=== PATIENT | female | born 1950 | race Caucasian/White ===

== ENCOUNTER 2022-01-05 12:06 | Inpatient (IN) ==
[2022-01-05 16:35] VITALS: BMI 20.2
[2022-01-05 17:31] LABS: BASOPHILS # (AUTO) 0.1 X10^3/uL (0.0-0.1); EOSINOPHILS # (AUTO) 0.1 x10^3/uL (0.0-0.2); HEMOGLOBIN 11.9 g/dL (12.0-16.0)
[2022-01-05 17:33] LABS: BASOPHILS % (AUTO) 0.3 % (0.2-1.0); MEAN PLATELET VOLUME 9.1 fL (7.4-11.0); MONOCYTES # (AUTO) 0.9 x10^3/uL (0.3-0.8)
[2022-01-05 17:38] LABS: EOSINOPHILS % (AUTO) 0.5 % (0.9-2.9); HEMATOCRIT 35.4 % (36.0-47.0); LYMPHOCYTES # (AUTO) 1.2 X10^3/uL (1.3-2.9); MEAN CORPUSCULAR HEMOGLOBIN 27.2 pg (27.0-34.0); MEAN CORPUSCULAR HGB CONC 33.7 g/dL (33.0-35.0); MEAN CORPUSCULAR VOLUME 80.9 fL (80.0-100.0); MONOCYTES % (AUTO) 5.2 % (0.0-13.0); NEUTROPHILS # (AUTO) 14.9 x10^3/uL (2.2-4.8); RED BLOOD COUNT 4.37 X10^6/uL (3.5-5.4); RED CELL DISTRIBUTION WIDTH 14.9 % (11.6-16.5); WHITE BLOOD COUNT 17.1 X10^3/uL (3.6-10.0)
[2022-01-05 17:44] LABS: ALANINE AMINOTRANSFERASE 29 Units/L (12-78); ALBUMIN 3.3 g/dL (3.4-5.0); ALKALINE PHOSPHATASE 162 Units/L (46-116); ASPARTATE AMINO TRANSFERASE 22 Units/L (15-37); BLOOD UREA NITROGEN 37 mg/dL (7-18); CALCIUM 9.9 mg/dL (8.5-10.1); CARBON DIOXIDE 22.8 mmol/L (21-32); CHLORIDE 101 mmol/L (98-107); COR CA(FOR HYPOALB) 10.5 mg/dL (8.5-10.1); CREATININE 1.14 mg/dL (0.55-1.02); SODIUM 135 mmol/L (136-145); TOTAL PROTEIN 8.4 g/dL (6.4-8.2); eGFR NON BLACK RACES 50 (>60)
[2022-01-05 17:52] LABS: PLATELET MORPHOLOGY COMMENT ABNORMAL (NORMAL)
[2022-01-05] MEDS: LR 1,000 ML IV 1,000 ML IV SCH (18:00)
[2022-01-05] MEDS: ZOSYN VIAL 3.375 GRAMS 3.375 G in NS 100 ML IV 100 ML IV SCH (18:00)
[2022-01-05] MEDS: SNACK - Diabetic Appropriate PO SCH (20:29)
[2022-01-05] MEDS: ALTACE CAP 10 MG PO SCH (20:29)
[2022-01-05] MEDS: LIPITOR TAB 20 MG PO SCH (20:30)
[2022-01-05] MEDS ORDERED: ZOSYN VIAL 3.375 GRAMS 3.375 G in NS 100 ML IV 100 ML IV SCH (22:00)
[2022-01-06] MEDS: ZOSYN VIAL 3.375 GRAMS 3.375 G in NS 100 ML IV 100 ML IV SCH ×3 (01:47→17:23)
[2022-01-06] MEDS: LR 1,000 ML IV 1,000 ML IV SCH ×3 (05:51→19:14)
[2022-01-06 06:13] LABS: BASOPHILS # (AUTO) 0.1 X10^3/uL (0.0-0.1); BASOPHILS % (AUTO) 0.8 % (0.2-1.0); EOSINOPHILS # (AUTO) 0.3 x10^3/uL (0.0-0.2); EOSINOPHILS % (AUTO) 2.5 % (0.9-2.9); HEMOGLOBIN 11.6 g/dL (12.0-16.0); LYMPHOCYTES # (AUTO) 1.5 X10^3/uL (1.3-2.9); LYMPHOCYTES % (AUTO) 14.4 % (21.0-51.0); MEAN CORPUSCULAR HEMOGLOBIN 27.7 pg (27.0-34.0); MEAN CORPUSCULAR HGB CONC 34.1 g/dL (33.0-35.0); MEAN CORPUSCULAR VOLUME 81.2 fL (80.0-100.0); MEAN PLATELET VOLUME 9.3 fL (7.4-11.0); MONOCYTES # (AUTO) 1.1 x10^3/uL (0.3-0.8); MONOCYTES % (AUTO) 10.2 % (0.0-13.0); NEUTROPHILS # (AUTO) 7.7 x10^3/uL (2.2-4.8); NEUTROPHILS % (AUTO) 72.1 % (42.0-75.0); RED BLOOD COUNT 4.19 X10^6/uL (3.5-5.4); RED CELL DISTRIBUTION WIDTH 14.6 % (11.6-16.5); WHITE BLOOD COUNT 10.7 X10^3/uL (3.6-10.0)
[2022-01-06 06:19] LABS: ALBUMIN 2.9 g/dL (3.4-5.0); CALCIUM 9.7 mg/dL (8.5-10.1); CARBON DIOXIDE 22.4 mmol/L (21-32); COR CA(FOR HYPOALB) 10.6 mg/dL (8.5-10.1); CREATININE 1.18 mg/dL (0.55-1.02)
[2022-01-06] MEDS: NovoLIN R (or HumuLIN R) SUBCUT PRN ×2 (06:42→11:09)
[2022-01-06] MEDS ORDERED: NORVASC TAB 5 MG PO ONE (09:00)
[2022-01-06] MEDS: ALTACE CAP 10 MG PO SCH ×2 (09:41→20:27)
--- NOTE | 2022-01-06 10:01 | NOTE.SOAP ---
Soap Note Note for Day of Date of Exam: 01/06/22 Subjective Data Subjective Data: Patient doing well. . Redness better left great toe and foot. Objective Data Temperature: 98.1 F Pulse Rate: 80 Respiratory Rate: 18 Blood Pressure: 164/76 O2 Sat by Pulse Oximetry: 95 Objective Data: As above Assessment Assessment: Cellulitis , possible ischemia left foot. Plan Plan: Continue IV antibiotics, check Hgb A1 C , To OR tomorrow to perform arteriogram left leg with possible arterial intervention. MRI of the left foot to see if osteomyelitis exists in the left great toe.
[2022-01-06] MEDS: LIPITOR TAB 20 MG PO SCH (20:27)
[2022-01-06] MEDS: SNACK - Diabetic Appropriate PO SCH (20:32)
[2022-01-06] MEDS ORDERED: XARELTO PO SCH (21:00)
[2022-01-07] MEDS: ZOSYN VIAL 3.375 GRAMS 3.375 G in NS 100 ML IV 100 ML IV SCH ×3 (01:52→21:11)
[2022-01-07] MEDS ORDERED: ASPIRIN EC 81 MG PO SCH (09:00)
[2022-01-07] MEDS ORDERED: ZOFRAN INJ 4 MG VIAL ONE ×2 (10:51→15:58)
[2022-01-07] MEDS ORDERED: TORADOL 30 MG VIAL ONE (10:51)
[2022-01-07] MEDS ORDERED: PROTAMINE SULFATE 50 MG VIAL ONE ×2 (10:51→14:14)
[2022-01-07] MEDS ORDERED: HEPARIN SODIUM INJ 5000 UNITS ONE (10:51)
[2022-01-07] MEDS ORDERED: PEPCID 20 MG VIAL ONE (10:51)
[2022-01-07] MEDS ORDERED: XYLOCAINE 2 % (PLAIN) ONE (10:51)
[2022-01-07] MEDS ORDERED: DIPRIVAN VIAL 20 ML ONE (10:51)
[2022-01-07] MEDS ORDERED: FENTANYL VIAL INJ 100 mcg ONE (10:52)
[2022-01-07] MEDS ORDERED: VERSED ONE (10:52)
[2022-01-07] MEDS: ALTACE CAP 10 MG PO SCH ×2 (11:05→20:22)
[2022-01-07] MEDS: LR 1,000 ML IV 1,000 ML IV SCH ×2 (11:06→21:12)
[2022-01-07] MEDS ORDERED: ANCEF VIAL 1 GRAM ONE (11:09)
[2022-01-07] MEDS ORDERED: NS 100 ML IV 100 ML ONE (11:10)
[2022-01-07] MEDS ORDERED: NS 1,000 ML IV 1,000 ML ONE (11:10)
[2022-01-07] MEDS ORDERED: MARCAINE 0.5% ONE (11:41)
[2022-01-07] MEDS ORDERED: HEPARIN SODIUM IN D5W 75,000 UNITS/1,500 ML BAG ONE (11:42)
[2022-01-07] MEDS ORDERED: KETAMINE HCL ONE (12:05)
[2022-01-07] MEDS ORDERED: OFIRMEV IV 1000 MG VIAL 1,000 MG/100 ML VIAL IV ONE (12:07)
[2022-01-07] MEDS ORDERED: EPHEDRINE SULFATE INJ ONE (12:45)
[2022-01-07] MEDS ORDERED: NS 500 ML IV 500 ML IV ONE (13:40)
[2022-01-07] MEDS: NovoLIN R (or HumuLIN R) SUBCUT PRN ×2 (17:23→20:32)
[2022-01-07] MEDS: LIPITOR TAB 20 MG PO SCH (20:22)
[2022-01-07] MEDS: SNACK - Diabetic Appropriate PO SCH (20:26)
--- NOTE | 2022-01-07 22:25 | OR.IMMED ---
IMMEDIATE POST-OP NOTE Immediate Post-Op Note Pre-Op Diagnosis: Rest pain left foot, ZAKIA of left leg is0.5 Post-Op Diagnosis: same. 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
[2022-01-07] MEDS: XARELTO PO SCH (22:57)
[2022-01-08] MEDS: ZOSYN VIAL 3.375 GRAMS 3.375 G in NS 100 ML IV 100 ML IV SCH ×2 (01:34→09:22)
[2022-01-08] MEDS: LR 1,000 ML IV 1,000 ML IV SCH (06:21)
[2022-01-08 06:28] LABS: BASOPHILS # (AUTO) 0.1 X10^3/uL (0.0-0.1); BASOPHILS % (AUTO) 0.6 % (0.2-1.0); EOSINOPHILS # (AUTO) 0.4 x10^3/uL (0.0-0.2); EOSINOPHILS % (AUTO) 4.7 % (0.9-2.9); HEMOGLOBIN 9.4 g/dL (12.0-16.0); LYMPHOCYTES # (AUTO) 1.3 X10^3/uL (1.3-2.9); LYMPHOCYTES % (AUTO) 13.8 % (21.0-51.0); MEAN CORPUSCULAR HEMOGLOBIN 27.6 pg (27.0-34.0); MEAN CORPUSCULAR HGB CONC 34.7 g/dL (33.0-35.0); MEAN CORPUSCULAR VOLUME 79.5 fL (80.0-100.0); MEAN PLATELET VOLUME 8.3 fL (7.4-11.0); MONOCYTES # (AUTO) 0.8 x10^3/uL (0.3-0.8); MONOCYTES % (AUTO) 8.4 % (0.0-13.0); NEUTROPHILS # (AUTO) 6.6 x10^3/uL (2.2-4.8); NEUTROPHILS % (AUTO) 72.5 % (42.0-75.0); RED BLOOD COUNT 3.39 X10^6/uL (3.5-5.4); RED CELL DISTRIBUTION WIDTH 14.3 % (11.6-16.5); WHITE BLOOD COUNT 9.1 X10^3/uL (3.6-10.0)
[2022-01-08 06:35] LABS: ALANINE AMINOTRANSFERASE 16 Units/L (12-78); ALBUMIN 2.4 g/dL (3.4-5.0); ALKALINE PHOSPHATASE 115 Units/L (46-116); ASPARTATE AMINO TRANSFERASE 14 Units/L (15-37); BLOOD UREA NITROGEN 16 mg/dL (7-18); CALCIUM 8.7 mg/dL (8.5-10.1); CARBON DIOXIDE 25.1 mmol/L (21-32); CHLORIDE 106 mmol/L (98-107); COR NA(FOR HYPERGLY) 143 mmol/L (136-145); CREATININE 0.89 mg/dL (0.55-1.02); SODIUM 141 mmol/L (136-145); TOTAL PROTEIN 6.5 g/dL (6.4-8.2); eGFR NON BLACK RACES > 60 (>60)
--- NOTE | 2022-01-08 08:07 | MRI ---
HISTORYlt great toe ulcerSTUDYEXT LOWER NON-JOINT W/O CONCOMPARISONNone availableTECHNIQUEMultiplanar multi sequences images through the left foot was performed without contrast.FINDINGSThere is no evidence of acute fractures. There is strong edema with loss of the fat signal involving the 1st distal phalanx, there is an ulcer in the plantar soft tissues of the great toe. No evidence of drainable collectionsThere is patchy edema in the proximal phalanx with preservation of the fat bone marrow, that it could represent early osteomyelitisThere is mild hallux valgus deformity with mild degenerative changes at the 1st metatarsal-phalangeal joint. The included Achillis tendon demonstrate no abnormal signalNo evidence of acute fractures, no abnormal signal in the sinus tarsi. The plantar fascia demonstrate no abnormal signalThere is trace amount of fluid in the 1st metatarsal-phalangeal joint. There is edema of the dorsal aspect of the forefoot. No significant neuropathic joint.IMPRESSIONFocal ulcer in the plantar soft tissues of the left great toe with acute osteomyelitis of the first distal phalanx with also patchy edema in the first proximal phalanx suggestive of early osteomyelitis. No drainable collectionsElectronically signed by: Ashley Alaniz (Jan 08, 2022 08:05:15)
[2022-01-08] MEDS ORDERED: ASPIRIN 81 MG CHEWTAB PO SCH (09:00)
[2022-01-08] MEDS: ALTACE CAP 10 MG PO SCH (09:21)
[2022-01-08] MEDS: XARELTO PO SCH (09:22)
[2022-01-08 11:32] VITALS: BP 189/83
--- NOTE | 2022-01-10 19:38 | DR.OPNOTE ---
OP NOTE Pre-Op Diagnosis: Ischemic left leg with rest pain, osteomyelitis left great toe Post-Op Diagnosis: same Procedure Date Date Of Procedure: 01/07/22 Procedure: PROCEDURE : Diagnostic aortogram , diagnostic arteriogram left lower extremity, atherectomy and drug coated balloon angioplasty left proximal superficial femoral artery NARRATIVE : The patient was taken to the operative suite and placed in the supine position. The right groin and entire left leg were prepped and draped in sterile fashion. She was given intravenous sedation which was supervised by myself. Time out for the procedure obtained. Ultrasound used to identify the right common femoral artery and the skin overlying it infiltrated with 0. 5% Marcaine .Ultrasound used to guide puncture of the right common femoral artery and a 0. 012 inch guide wire was placed. Incision made over the guide wire at the skin edge and a micro sheath placed over the guide wire into the right femoral artery . The small guidewire exchanged for a 0. 035 in Advantage glide wire and the micro sheath exchanged for a 5 Fr vascular sheath .Omni catheter placed over the guide wire and the Omni catheter used to perform diagnostic aortogram using the power injector showing normal aorta and iliac arteries. Omni catheter used to steer the wire down the left side and arteriogram carried out showing short segment complete total occlusion of the takeoff of the left superficial femoral artery. I exchanged the Omni catheter for a Nemo catheter and the 5 Fr sheath in the right groin for a destination sheath which was parked just above the left femoral artery. Multiple attempts were made to place the wire across the obstruction of the superficial femoral artery and were unsuccessful. For this reason i elected to attempt retrograde approach. The left posterior tibial artery at the ankle was localized with ultrasound and the skin overlying it infiltrated with 0.5 % Marcaine . Ultrasound used to guide puncture of the posterior tibial artery and a 0. 012 inch guidewire placed . Small incision made over the guide wire and a micro sheath placed over the guide wire into the left posterior tibial artery The 0. 035 inch Advantage glide wire was used to go all the way to the groin and I was able to get across the obstruction into the capitan grande band left iliac artery. Amplatz snare was placed through the destination sheath into the distal left iliac artery and the snare used to grasp the wire and this was brought out the right groin destination sheath . Over this wire we placed the Nemo catheter all the way down into the posterior tibial artery . We exchanged the larger wire for a 0. 014 inch wire and used the Jet Stream atherectomy device over the wire to the perform atherectomy of the proximal superficial femoral artery complete total occlusion. When this was done we ballooned open this area with a 6 mm x 100 mm of [employer] drug-coated balloon which was inflated for 3 minutes. Patient had been given 5000 units of heparin at the beginning of case . Reversal was not necessary to be carried out of the heparin. All wires and devices removed. The diagnostic sheath pulled back into the aorta and the 0. 035 inch wire was placed into the aorta. Diagnostic sheath was exchanged for an Angioseal closure device which was used to close the puncture of the right femoral artery . Tibial band was placed over the sheath in the puncture of left medial ankle and inflated and then the catheter removed. There was no bleeding from other site. The patient was stable and taken to same day surgery in good condition. Type of Anesthesia: Local (0.5% Marcaine) Anesthesia Comment: plus MAC Findings: short segment complete total occlusion of the takeoff of the left superficial femoral artery Type of Fluids Used:: Lactated Ringers (650 cc) EBL: 100 cc Complications:: none Needle/Sponge Count:: correct Disposition/Condition: Pt. tolerated procedure without difficulty. Taken to [facility] in stable condition.
--- NOTE | 2022-01-13 00:01 | W.DIS.FURT ---
Summary of Discharge Discharge Summary of Date Date of Exam: 01/08/22 Admission Date Date of Admission: 01/05/22 Admission Diagnosis Hospital Course: 71 year old female, diabetic with non-healing wound to the plantar surface of the left great toe. Ankle-brachial index on that side equals 0. 5. However, CT angiogram of the aorta and bilateral lower extremity run off was read as normal .Cellulitis of the left foot mainly involving the left great toe versus ischemic changes On my exam she had no palpable pulses of the left ankle. She was taken to the OR and underwent on table arteriogram showing complete total occlusion over a very small segment of the takeoff of the left superficial artery. She underwent atherectomy and Drug coated balloon angioplasty of this left superficial femoral artery occlusion . She now has a palpable pulse in the left ankle. MRI was obtained showing osteomyelitis of the left great toe distal phalanx and possibly of the proximal phalanx as well. She has been discharged on p.o. antibiotics and is on Xarelto 2.5 mg daily and aspirin. She will follow up with me in one week to reassess her. I believe no intervention will be required of the right side. She will follow up with Doctor Sharmaine, parts salesperson to assess treatment of the osteomyelitis of the left great toe. Labs: Laboratory Last Values WBC 9.1 X10^3/uL (3.6-10.0) 01/08/22 05:32 RBC 3.39 X10^6/uL (3.5-5.4) L 01/08/22 05:32 Hgb 9.4 g/dL (12.0-16.0) L D 01/08/22 05:32 Hct 27.0 % (36.0-47.0) L 01/08/22 05:32 MCV 79.5 fL (80.0-100.0) L 01/08/22 05:32 MCH 27.6 pg (27.0-34.0) 01/08/22 05:32 MCHC 34.7 g/dL (33.0-35.0) 01/08/22 05:32 RDW 14.3 % (11.6-16.5) 01/08/22 05:32 Plt Count 267 X10^3/uL (150.0-450.0) 01/08/22 05:32 Plt Count Comment Cancelled 01/06/22 05:39 MPV 8.3 fL (7.4-11.0) 01/08/22 05:32 Neut % (Auto) 72.5 % (42.0-75.0) 01/08/22 05:32 Lymph % (Auto) 13.8 % (21.0-51.0) L 01/08/22 05:32 [place] % (Auto) 8.4 % (0.0-13.0) 01/08/22 05:32 Eos % (Auto) 4.7 % (0.9-2.9) H 01/08/22 05:32 Baso % (Auto) 0.6 % (0.2-1.0) 01/08/22 05:32 Neut # (Auto) 6.6 x10^3/uL (2.2-4.8) H 01/08/22 05:32 Lymph # (Auto) 1.3 X10^3/uL (1.3-2.9) 01/08/22 05:32 [place] # (Auto) 0.8 x10^3/uL (0.3-0.8) 01/08/22 05:32 Eos # (Auto) 0.4 x10^3/uL (0.0-0.2) H 01/08/22 05:32 Baso # (Auto) 0.1 X10^3/uL (0.0-0.1) 01/08/22 05:32 Absolute Nucleated RBC 0.0 /100WBC 01/08/22 05:32 Nucleated RBCs Cancelled 01/06/22 05:39 Atypical Lymphocytes Cancelled 01/06/22 05:39 Blast Cells Cancelled 01/06/22 05:39 Smudge Cells Cancelled 01/06/22 05:39 Toxic Granulation Cancelled 01/06/22 05:39 Dohle Bodies Cancelled 01/06/22 05:39 Haleigh Rods Cancelled 01/06/22 05:39 Plt Clumps, EDTA Cancelled 01/06/22 05:39 Giant Platelets Cancelled 01/06/22 05:39 Plt Morphology Comment Cancelled 01/06/22 05:39 RBC Morphology Cancelled 01/06/22 05:39 Dimorphic RBCs Cancelled 01/06/22 05:39 Polychromasia Cancelled 01/06/22 05:39 Hypochromasia Cancelled 01/06/22 05:39 Poikilocytosis Cancelled 01/06/22 05:39 Basophilic Stippling Cancelled 01/06/22 05:39 Anisocytosis Cancelled 01/06/22 05:39 Microcytosis Cancelled 01/06/22 05:39 Macrocytosis Cancelled 01/06/22 05:39 Spherocytes Cancelled 01/06/22 05:39 Pappenheimer Bodies Cancelled 01/06/22 05:39 Sickle Cells Cancelled 01/06/22 05:39 Target Cells Cancelled 01/06/22 05:39 Tear Drop Cells Cancelled 01/06/22 05:39 Ovalocytes Cancelled 01/06/22 05:39 Stomatocytes Cancelled 01/06/22 05:39 Helmet Cells Cancelled 01/06/22 05:39 [place] Bodies Cancelled 01/06/22 05:39 [place] Rings Cancelled 01/06/22 05:39 Letty Cells Cancelled 01/06/22 05:39 Crenated Cell Cancelled 01/06/22 05:39 Acanthocytes (Spur) Cancelled 01/06/22 05:39 Rouleaux Cancelled 01/06/22 05:39 Schistocytes Cancelled 01/06/22 05:39 Sodium 141 mmol/L (136-145) 01/08/22 05:32 Corrected Sodium 143 mmol/L (136-145) 01/08/22 05:32 Potassium 3.7 mmol/L (3.5-5.1) 01/08/22 05:32 Chloride 106 mmol/L (98-107) 01/08/22 05:32 Carbon Dioxide 25.1 mmol/L (21-32) 01/08/22 05:32 BUN 16 mg/dL (7-18) 01/08/22 05:32 Creatinine 0.89 mg/dL (0.55-1.02) 01/08/22 05:32 Est GFR (MDRD) Af Amer > 60 (>60) 01/08/22 05:32 Est GFR (MDRD) Non-Af > 60 (>60) 01/08/22 05:32 Glucose 176 mg/dL (65-99) H 01/08/22 05:32 POC Glucose (mg/dL) 174 mg/dL (65-99) H 01/08/22 05:50 Hemoglobin A1c 9.5 % 01/06/22 05:39 Calcium 8.7 mg/dL (8.5-10.1) 01/08/22 05:32 Corrected Calcium 10.0 mg/dL (8.5-10.1) 01/08/22 05:32 Total Bilirubin 0.50 mg/dL (0.2-1.0) 01/08/22 05:32 AST 14 Units/L (15-37) L 01/08/22 05:32 ALT 16 Units/L (12-78) 01/08/22 05:32 Alkaline Phosphatase 115 Units/L (46-116) 01/08/22 05:32 Total Protein 6.5 g/dL (6.4-8.2) 01/08/22 05:32 Albumin 2.4 g/dL (3.4-5.0) L 01/08/22 05:32 Globulin 4.1 g/dL (2.5-4.5) 01/08/22 05:32 Albumin/Globulin Ratio 0.6 Ratio (1.1-2.1) L 01/08/22 05:32 SARS-CoV-2 (PCR) Negative (NEGATIVE) 01/05/22 17:11 Reason For Visit: ISCHEMIC LEG WITH TISSUE LOSS Discharge Date Discharge Date: 01/08/22 Discharge Diagnosis All Active Problems (Updated 01/12/22 @ 23:59 by Gabriel Guzman) Critical limb ischemia of left lower extremity (Acute) Plan of Treatment: Continue with present treatment and follow up plan. Pt is to keep follow up appointment as instructed and take medications as ordered. Discharge Medications Discharge Medications: No Known Drug Allergies [NKDA] Allergy (Verified 01/05/22 16:23) CONTINUE taking the following medications amlodipine 10 mg tablet 1 tab PO QDAY 01/05/22 [History] atorvastatin 20 mg tablet 1 tab PO QDAY 01/05/22 [History] cephalexin 500 mg capsule 1 cap PO QID 01/05/22 [History] gentamicin 0.1 % topical cream 1 applic topical QDAY 01/05/22 [History] insulin degludec 100 unit/mL (3 mL) subcutaneous pen (Tresiba FlexTouch U-100 insulin) 10 unit subcut TID 01/05/22 [History] ramipril 10 mg capsule 1 cap PO BID 01/05/22 [History] New Prescriptions clindamycin HCl 150 mg capsule 150 mg PO QID #40 caps 01/08/22 [Rx] rivaroxaban 2.5 mg tablet (Xarelto) 2.5 mg PO BID #180 tabs 01/08/22 [Rx] Discharge Disposition Discharge Disposition: Home Discharge Plan Discharge Plan Hospital Course: 71 year old female, diabetic with non-healing wound to the plantar surface of the left great toe. Ankle-brachial index on that side equals 0. 5. However, CT angiogram of the aorta and bilateral lower extremity run off was read as normal .Cellulitis of the left foot mainly involving the left great toe versus ischemic changes On my exam she had no palpable pulses of the left ankle. She was taken to the OR and underwent on table arteriogram showing complete total occlusion over a very small segment of the takeoff of the left superficial artery. She underwent atherectomy and Drug coated balloon angioplasty of this left superficial femoral artery occlusion . She now has a palpable pulse in the left ankle. MRI was obtained showing osteomyelitis of the left great toe distal phalanx and possibly of the proximal phalanx as well. She has been discharged on p.o. antibiotics and is on Xarelto 2.5 mg daily and aspirin. She will follow up with me in one week to reassess her. I believe no intervention will be required of the right side. She will follow up with Doctor Sharmaine, parts salesperson to assess treatment of the osteomyelitis of the left great toe. Patient Disposition: 01 HOME, SELF-CARE Condition: Stable Health Concerns: Post Hospitalization: new medications and changes needed to prevent readmission or further decline. Pt educated and given instructions on all concerns. Care Plan Goals: Problem: Pain/Alteration in Comfort Goal: Improve/ Resolve Pain; Achieve Pain Tolerance Instructions: Take pain medications as prescribed. Contact your primary care provider if your pain is unrelieved or worsens. Follow up with primary care provider as directed. Plan of Treatment: Continue with present treatment and follow up plan. Pt is to keep follow up appointment as instructed and take medications as ordered. Prescriptions: New clindamycin HCl 150 mg Capsule 150 mg PO QID Qty: 40 0RF Xarelto 2.5 mg Tablet 2.5 mg PO BID Qty: 180 0RF Continued atorvastatin 20 mg tablet 1 tab PO QDAY amlodipine 10 mg tablet 1 tab PO QDAY cephalexin 500 mg capsule 1 cap PO QID gentamicin 0.1 % cream 1 applic TOPICAL QDAY ramipril 10 mg capsule 1 cap PO BID Tresiba FlexTouch U-100 100 unit/mL (3 mL) insulin pen 10 unit SUBCUT TID Label Comments: [NO ORIGINAL SIG] Follow ups/Referrals Follow ups/Referrals: Gabriel Guzman [Primary Care Provider] - 01/13/22 1:30 pm Instructions Instructions: Transient Ischemic Attack, [id number], Vascular Ultrasound, Vascular Malformation Stand Alone Forms: Excuse From Work or School, Precautions for COVID, [facility], Patient Portal, Social Distancing
== END 2022-01-08 12:30 | disposition home or self-care (01) | DRG 271 ==
LOC: MED/SURG 15:04
PROVIDERS: ADMIT Surgery; ATTEND Surgery
DX: L03.032 Cellulitis of left toe; I10 Essential (primary) hypertension; I70.222 Atherosclerosis of native arteries of extremities with rest pain, left leg; M86.8X7 Other osteomyelitis, ankle and foot; Z20.822 Contact with and (suspected) exposure to COVID-19; E11.65 Type 2 diabetes mellitus with hyperglycemia